=== PATIENT | female | born 1985 ===

== ENCOUNTER → 2018-05-04 08:34 | Day surgery (SDC) | payer SELFPAY ==
[~2018-05-04 08:34] MED LIST: Buffered Lidocaine 0.9% SYRIN* 5 ML/SYR SYRINGE INTRADERM ONE; Buffered Lidocaine 0.9% SYRIN* 5 ML/SYR SYRINGE ONE; Bupivacaine 0.25% SDV* 30 ML ONE; Dexamethasone IV* 4 MG/ML 1 ML (4 MG) IV SLOW PU ONE; Dexamethasone IV* 4 MG/ML 1 ML (4 MG) ONE; DiMENhydriNATE IV* 50 MG/ML VIAL IV PUSH PRN; Famotidine IV* 10 MG/ML 2 ML (20 mg) IV ONE; Famotidine IV* 10 MG/ML 2 ML (20 mg) ONE; HYDROmorphone INJ1* 1 MG/ML SYRINGE IV PRN; Ketorolac INJ* 30 MG/ML 1 ML VIAL ONE; Midazolam* 1 MG/ML 5 ML VIAL (5 MG) ONE; Naloxone* 0.4 MG/ML 1 ML VIAL IV PRN; Ondansetron INJ* 2 MG/ML VIAL IV PRN; Ondansetron INJ* 2 MG/ML VIAL ONE; Propofol* 10 MG/ML 20 ML BTL IV PUSH ONE; Scopolamine 1.5 mg* PATCH TRANSDERM PRN; ceFAZolin 2 GM PREMIX in ORs 2 GM/50 ML BAG IVPB ONE; fentaNYL* 50 MCG/ML 2 ML VIAL (100 MCG VIAL) ONE; fentaNYL* 50 MCG/ML 5 ML VIAL (250 MCG VIAL) ONE; oxyCODONE/Acetamin 5/325 MG* TAB ONE; oxyCODONE/Acetamin 5/325 MG* TAB PO PRN
[2018-05-04] MEDS: fentaNYL* 50 MCG/ML 2 ML VIAL (100 MCG VIAL) IV PRN ×2 (14:48→15:01)
[2018-05-04 15:24] VITALS: BP 139/87
--- NOTE | 2018-05-05 00:24 | OP ---
DATE OF OPERATION: 05/04/18 - [facility] DATE OF : 85 SURGEON: Morris Granados MD PHYSICIAN [facility]ICINE: RACHAEL Graham. An campaign assistant was needed for the entirety of the procedure and to aid in positioning of the arm and retraction. ANESTHESIOLOGIST: Dr. Talley. ANESTHESIA: General. PRE-OP DIAGNOSIS: Left intraarticular multifragmentary distal radius fracture. POST-OP DIAGNOSIS: Left intraarticular multifragmentary distal radius fracture. OPERATIVE PROCEDURE: Left distal radius intraarticular, greater than 3 fragments, distal radius fracture open reduction and internal fixation. INDICATIONS: Maria Elena is 32. She fell; she had a very displaced impacted distal radius fracture. I talked to her about the risks and benefits. She wanted to proceed. There was some concern for potentially some scapholunate injury. I told her I would have a look at the fluoroscopic images after I better aligned the distal radius. There was concern I would open up the dorsum of the wrist and repair the ligament. She understood all of this and wanted to proceed with surgery. ESTIMATED BLOOD LOSS: 2 mL. COMPLICATIONS: None. FINDINGS: See above and below. DESCRIPTION OF PROCEDURE: Maria Elena was seen in the preoperative holding area. The correct site, side, and procedure were identified. We came back to the operating room. The arm was prepped and draped in the usual fashion. A time- out was performed. The arm was exsanguinated with the Esmarch and the tourniquet was inflated to 250 mmHg. I made a longitudinal incision over the distal FCR tendon. Dissection was carried down and the FCR tendon sheath was released. Tendon was retracted ulnarly. The subsheath was released. The interval between the FPL and the radial artery was used to expose the pronator quadratus. This was released off the radial margin and teed back distally preserving the distal 3 to 4 mm of post capsular ligaments. The fracture site was noted. Fracture was mobilized. I placed the arm in 10 pounds of inline traction utilizing the Arthrex hand-lee. The fracture was reduced. I went ahead and brought up my Synthes variable angle distal radius plate. This was pinned into place. The alignment showed that the volar aspect of the articular surface was very well aligned. There was still little depression and impaction in the dorsal ulnar fragment. I went ahead and secured the plate proximally with three 2.4 mm cortical screws. I then placed three 14 mm screws in the ulnar 3 holes of the distal row so as not to engage the dorsal fragment. I then went ahead and placed a Bourbon elevator through the radial fracture line. I was able to disimpact the dorsal ulnar fragment. I then sequentially exchanged each 14 mm screw for a 22 mm screw in order to rasp that dorsal ulnar fragment. Once I had all 3 screws exchanged, I placed my radial styloid screw using a variable- angle locking screw. Final fluoroscopic imaging revealed excellent alignment in the AP and lateral and oblique planes. I went ahead and performed some scapholunate stress testing under fluoroscopy. I could not really induce any significant widening. There was no significant DC deformity on the lateral view. I therefore decided not to repair the ligament. The wound was irrigated out. The pronator quadratus was repaired with 3-0 Vicryl suture. The skin was closed with 4-0 Monocryl suture and Steri-Strips. 0.25% plain Marcaine was infiltrated all about the operative area. A cockup wrist splint was applied and cleaned palmar and dorsal plaster slabs. Tourniquet was deflated. She was taken to the recovery room in stable condition. [id number]/[facility] #: [id number] SUZANNE
--- NOTE | 2018-05-05 08:00 | RAD ---
CPT II Codes: G9500 INDICATION: Left wrist fracture TECHNIQUE: Intraoperative fluoroscopy was provided during plate and screw ORIF of the fracture distal left radius. FINDINGS: Multiple images depict application of a plate and screw fixator on the volar surface of the fractured distal left radius. Fluoroscopy time: 41 seconds IMPRESSION: As above.
== END | disposition home or self-care (01) ==
LOC: OR 08:34
PROVIDERS: ATTEND Orthopaedic Surgery Hand Surgery
DX: S52.572A Other intraarticular fracture of lower end of left radius, initial encounter for closed fracture (principal); W01.0XXA Fall on same level from slipping, tripping and stumbling without subsequent striking against object, initial encounter; Y92.098 Other place in other non-institutional residence as the place of occurrence of the external cause; Z72.0 Tobacco use
CPT/HCPCS: 76000; 81025; A9270-GY; C1713; C1776; J0690; J1100; J1885; J2250; J2405; J2704; J3010